=== PATIENT | male | born 1960 | race Caucasian/White ===

== ENCOUNTER 2016-12-17 14:54 | Emergency (ER) | payer OTHER ==
[~2016-12-17] VITALS: Ht 167.6 cm; Wt 68.2 kg
[2016-12-17 14:58] VITALS: BP 132/78; PULSE 72; RESP 20; O2SAT 98
--- NOTE | 2016-12-17 17:15 | ED.REPORT ---
HPI-Psychiatric Illness Date of Service Dec 17, 2016 ED Provider: Dr. Duenas 56 year old male who is well known to us who presents from [facility] for depression, SI and HI. See [employer] evaluation. SI and HI is not felt to be imminent. Does not elaborate any specific plan or target for his SI/HI ideations. He is angry but cooperative. Does not appear to be hallucinating. Willing to return to crisis as per plan. Requesting lorazepam at high doses, trazodone, Provigil. Seen at [place] recently and will be following up there for medications. Nursing Notes Stated Complaint: SUICIDAL Chief Complaint: Psychiatric Complaint Nursing Notes Reviewed: Yes Allergies: Coded Allergies: No Known Allergies (Verified Allergy, Unknown, 12/17/16) No Active Prescriptions or Reported Meds General Time Seen by MD: 17:15 Chief Complaint Suicidal ideation Hx Obtained From: Patient Arrived By: Walk-in Symptom Duration: Since onset Severity: Current: No pain currently Associated with: Reports: Illicit drug use, Denies: Fever Similar Sx Previous: Yes Risk-Psychiatric Illness Suicide Risk Stratification Suicide Risk Factors - Adult: : Alcohol use: Prior psych admission: Substance abuseNo: Access to firearms, Family Hx of Suicide RF Statements: Risk factors reviewed Past Medical History Past Medical History Notes: 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 Past Medical History Cervical disc disease Bipolar illness Emphysema COPD Rheumatoid arthritis TMJ Back pain Dental pain Depression Past Surgical History Faical abscess drainage Reports: Tonsillectomy Family History Reviewed, not relevant Smoking History Current Every Day Smoker Social History Alcohol Use: Denies alcohol use Drug Use: Meth, THC, Other Other Social History: Poor social support, Frequent ED visitor, Homeless Occupation at [employer] [facility] Ambulatory Status Independent Review of Systems Psychiatric: Reports: Depression, Homicidal ideation, Suicidal ideation Complete sys rev & neg: except as marked. Physical Exam Initial Vital Signs Vital Signs (First) Date Time Temp Pulse Resp B/P Pulse Ox O2 Delivery O2 Flow Rate FiO2 12/17/16 14:58 36.2 72 20 132/78 98 Room Air Initial VS: Reviewed Head / Eyes: Normocephalic, PERRL ENT: Conjunctiva normal, No scleral icterus Neck: Full range of motion Respiratory: Breath sounds normal, Clear to auscultation, No respiratory distress Cardiovascular: Regular rate & rhythm, Heart sounds normal, Intact distal pulses Extremities: Vascular intact, Neuro intact, No swelling, No tenderness Skin: Warm, Dry, No cyanosis General/Constitutional: Awake, Alert Neurologic: Oriented X3, Speech NL, No motor deficits Does not elaborate any specific plan or target for his SI/HI ideations. He is angry but cooperative. Does not appear to be hallucinating. Interpretation & Diagnostics 0 breathalyzer +Meth Lab Results Interpretation Test 12/17/16 15:40 Hold Urine Received (Received) General Lab Results Interp 1: Labs reviewed Re-Eval/Medical Decision Source of Hx: Old records Re-Evaluation/Progress : Time of Eval: 17:40 Re-Evaluation/Progress Note: Discussed plan for discharge and follow up. All questions addressed. Counseled Regarding: Diagnosis, Need for follow-up, When/why to return to ED Discharge & Departure Impression: Primary Impression: Depression Depression Type: major depressive disorder Major depression recurrence: recurrent Active/Remission status: currently active Major depression episode severity: moderate Qualified Code: F33.1 - Major depressive disorder, recurrent, moderate )( Condition at Discharge: No danger to self, No danger to others Disposition: Home Discharge Condition All VS Reviewed: Yes Condition: Stable Additional Instructions: Return to [facility], follow up with [facility]. Trazodone as prescribed. Scribe Attestation Portions of this note were transcribed by Farzaneh Maloney. I, (Dr. Duenas) personally performed the history, physical exam and medical decision- making; I reviewed and confirmed the accuracy of the information in the transcribed note. Signed by: Farzaneh Maloney. 12/17/2016, 1759 Haider Duenas MD Dec 17, 2016 17:15 Farzaneh Maloney Dec 17, 2016 17:27
[2016-12-17 18:08] VITALS: BP 133/86; PULSE 71; RESP 22; O2SAT 100
== END 2016-12-17 18:10 | disposition home or self-care (01) ==
LOC: SED 14:54
DX: F33.1 Major depressive disorder, recurrent, moderate (principal); R45.851 Suicidal ideations; R45.850 Homicidal ideations; J44.9 Chronic obstructive pulmonary disease, unspecified; M06.9 Rheumatoid arthritis, unspecified; F31.9 Bipolar disorder, unspecified; F17.200 Nicotine dependence, unspecified, uncomplicated

== ENCOUNTER 2017-06-09 17:11 | Emergency (ER) | payer OTHER ==
[~2017-06-09] VITALS: Ht 167.6 cm; Wt 65.9 kg
[2017-06-09 17:28] VITALS: BP 111/62; PULSE 69; RESP 20; O2SAT 97
[2017-06-09 18:07] LABS: BASOPHILS % (AUTO) 0.5 % (0-3); EOSINOPHILS % (AUTO) 5.1 % (0-5); MONOCYTES % (AUTO) 14.7 % (4-12); Mean Corpuscular Hemoglobin 30.4 pg (27.0-35.0); Mean Corpuscular Volume 94.1 fL (81-100); NEUTROPHILS % (AUTO) 48.2 % (40-74); Platelet Count 175 bil/L (150-400)
--- NOTE | 2017-06-09 18:07 | ED.REPORT ---
HPI-Abd Pain M 40 and Over Date of Service Jun 09, 2017 ED Provider: Morales Weber DO Pt is a 57 year old male with a hx of IV drug abuse and COPD presenting to the ED via EMS complaining of 9/10 bilateral flank pain right greater than left onset 5 days ago. Associated symptoms include dizziness, lightheadedness, decreased urination, right mid back and hip pain. He was walking down the road today and felt like he had to sit down, but then when he sat down he felt dizzy. Denies fever, chills, change in stool, abdominal pain, focal weakness, or any other symptoms at this time. He was admitted in 2000 for drug related renal failure. Pt reports that he is currently using meth and heroin. He states that these symptoms feel similar to when he had renal failure. Nursing Notes Stated Complaint: DIZZINESS, FLANK PAIN Chief Complaint: Male Abdominal Pain Nursing Notes Reviewed: Yes Allergies: Coded Allergies: No Known Allergies (Verified Allergy, Unknown, 12/17/16) No Active Prescriptions or Reported Meds General Time Seen by MD: 18:06 Chief Complaint Flank pain right Hx Obtained From: Patient Arrived By: Walk-in Sudden in Onset?: No Onset Occurred: 5 days ago Symptom Duration: Since onset Progression since Onset: Constant Location: : Flank left: Flank right Quality: Painful Radiation: : Back Severity: Current: Moderate Severity: Maximum: Severe Recent Healthcare: No recent doctor visit, No recent hospitalization Similar Sx Previous: Yes Past Medical History Past Medical History Notes: 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 Past Medical History Acute drug related renal failure in 2000 Cervical disc disease Bipolar illness Emphysema COPD Rheumatoid arthritis TMJ Back pain Dental pain Depression Past Surgical History Faical abscess drainage Reports: Tonsillectomy Family History Reviewed, not relevant Smoking History Current Every Day Smoker Social History Alcohol Use: Denies alcohol use Drug Use: Meth, THC, Other (Heroin) Other Social History: Poor social support, Frequent ED visitor, Homeless Occupation at [employer] Ambulatory Status Independent Review of Systems Constitutional: Denies: Chills, Fever GI: Denies: Abdominal pain, Bloody/tarry stool, Constipation, Diarrhea, Melena Male: Reports Flank pain, Reports Urination decreased Musculoskeletal: Reports: Back pain, Joint pain (Hip) Complete sys rev & neg: except as marked. Neurologic: Reports: Dizziness, Lightheaded, Denies: Focal weakness Physical Exam Initial Vital Signs Vital Signs (First) Date Time Temp Pulse Resp B/P Pulse Ox O2 Delivery O2 Flow Rate FiO2 06/09/17 17:28 36.8 69 20 111/62 97 Room Air Initial VS: Reviewed Head / Eyes: Atraumatic, Normocephalic, PERRL ENT: Mucous membranes moist, Conjunctiva normal, No scleral icterus Neck: Supple, Non-tender, Full range of motion Extremities: Vascular intact, Neuro intact, No swelling, No tenderness Skin: Warm, Dry, No cyanosis Neurologic: Alert, Oriented, Nonfocal Psychiatric: Mood/affect normal, Behavior normal, Normal thought content General/Constitutional: Awake, Alert, No acute distress, Well appearing Respiratory / Chest: Atraumatic, Breath sounds NL, Breath sounds = bilat, No respiratory distress Cardiovascular: Heart rate NL, Regular rhythm, Heart sounds NL, No gallop, No murmurs, No rubs Abdomen: Atraumatic, Soft, Non-tender, No guarding, No rebound Interpretation & Diagnostics Lab Results Interpretation Result Diagram: 06/09/17 1802 06/09/17 1802 Test 06/09/17 18:00 06/09/17 18:02 06/09/17 23:24 Urine Color Yellow (YELLOW) Urine Appearance Clear (CLEAR,HAZY) Urine pH 6.0 (5.0-8.0) Urine Specific [place] 1.025 (1.003-1.035) Urine Protein Negativemg/dL (NEG,TRACE) Urine Glucose (UA) Negativemg/dL (NEGATIVE) Urine Ketones Tracemg/dL (NEGATIVE) Urine Occult Blood Negative (NEGATIVE) Urine Nitrite Negative (NEGATIVE) Urine Bilirubin Negative (NEGATIVE) Urine Urobilinogen Normalmg/dL (NORMAL) Urine Leukocyte Esterase Negative (NEGATIVE) Urine RBC 0-2/hpf (0-2) Urine WBC 0-5/hpf (0-5) Urine Epithelial Cells Few/hpf (NONE-MOD) Urine Crystals Oxalic acid crystals (NONE Urine Bacteria Few/hpf (NONE-FEW) Urine Hyaline Casts None/lpf (NONE) Urine Granular Casts None seen (NONE SEEN) Urine Waxy Casts None seen (NONE SEEN) Urine Red Blood Cell Casts None seen (NONE SEEN) Urine White Blood Cell Casts None seen (NONE SEEN) Urine Mucus None seen (None Seen) Urine Trichomonas None seen (NONE SEEN) Urine Yeast None (NONE SEEN) Urinalysis Comment None Urine Culture Reflexed Not indicated White Blood Count 7.6th/mm3 (3.8-10.1) Red Blood Count 3.72mil/mm3 (4.40-5.80) Hemoglobin 11.3g/dL (13.8-17.2) Hematocrit 35.0% (41.0-50.0) Mean Corpuscular Volume 94.1fL (81-100) Mean Corpuscular Hemoglobin 30.4pg (27.0-35.0) Mean Corpuscular Hemoglobin Concent 32.3% (32.0-37.0) Red Cell Distribution Width 13.3% (12.3-15.4) Platelet Count 175bil/L (150-400) Neutrophils (%) (Auto) 48.2% (40-74) Lymphocytes (%) (Auto) 31.4% (14-46) Monocytes (%) (Auto) 14.7% (4-12) Eosinophils (%) (Auto) 5.1% (0-5) Basophils (%) (Auto) 0.5% (0-3) Sodium Level 141mEq/L (134-144) Potassium Level 3.9mEq/L (3.5-5.2) Chloride Level 103mEq/L (97-108) Carbon Dioxide Level 26mmol/L (18-29) Blood Urea Nitrogen 14mg/dL (6-24) Creatinine 0.74mg/dL (0.76-1.27) Estimat Glomerular Filtration Rate 116mL/min (>59) Glucose Level 73mg/dL (60-99) Calcium Level 8.6mg/dL (8.5-10.1) Magnesium Level 1.7mg/dL (1.6-2.6) Total Bilirubin 0.2mg/dL (0.0-1.2) Aspartate Amino Transf (AST/SGOT) 87U/L (0-50) Alanine Aminotransferase (ALT/SGPT) 106U/L (0-44) Alkaline Phosphatase 67U/L (25-150) Total Protein 6.2g/dL (6.4-8.4) Albumin 3.2g/dL (3.4-5.0) Lipase 51U/L (13-60) Troponin T 0.010ug/L (0.0-0.011) ECG Interpretation Time: 23:18 Interpreted by: ED physician Normal ECG Interpretation: Normal ECG w/ rate of... (66), Normal sinus rhythm CT Abd / Pelvis Interpretation CONCLUSION: 1. Normal caliber appendix. No free air, bowel obstruction, or gross intestinal inflammation. Small hypodense free fluid in the right posterior pelvis of uncertain etiology/clinical significance. 2. Negative for obstructive uropathy. 3. Small left lateral liver hemangioma. This report was transmitted to the emergency room at 06/09/2017 - 10:44:49 PM PDT. Study type: Abdominal CT IV contrast Interpretation / Wet Read by: Interpret - Radiologist Re-Eval/Medical Decision Med Decision/Clinical Course 57-year-old male with waxing and waning flank pain. On exam he had some CVA tenderness on the right. Laboratory work showed oxalate crystals in his urine. CT scan however was reassuring. There were some nonacute findings that he will follow up with. Pain was adequately treated. Short course of Percocet provided for pain. Routine opiate warnings given. He assures me he is not abusing any other drugs and he understands that if he combines the opiates we gave with street drugs that can be life-threatening. Recommend close outpatient follow-up. Time of Eval: 20:28 Patient Status: Condition improved Re-Evaluation/Progress Note: Performed physical exam. Time of Eval: 23:40 Patient Status: Condition improved Re-Evaluation/Progress Note: Discussed lab results and plan for discharge. Pt understands and agrees. Counseled Regarding: Diagnosis, Lab results, Need for follow-up, When/why to return to ED Discharge & Departure Primary Impression: Low back pain Chronicity: acute Back pain laterality: unspecified Sciatica presence: unspecified whether sciatica present Qualified Code: M54.5 - Low back pain Disposition: Home Vital Signs - All Vital Signs Date Time Temp Pulse Resp B/P Pulse Ox O2 Delivery O2 Flow Rate FiO2 06/10/17 00:53 36.8 75 18 114/67 96 Room Air 06/09/17 19:33 163/83 06/09/17 19:32 72 146/74 06/09/17 17:28 36.8 69 20 111/62 97 Room Air )( All Prior VS Reviewed: Yes Condition: Improved Patient Instructions: Flank Pain (ED) Additional Instructions: Your EKG and labs looked normal today. They did not show any sign of heart attack or blood clot. Your CT scan did not show any sign of kidney stones or and dangerous cause for your flank pain. Take the pain medication every 6 hours as needed for pain. This medication is a narcotic so do not drink alcohol, drive , or take Acetaminophen while taking it. Return to the ER if you develop any new or worsening symptoms. Follow up with your primary care doctor in the next week. Take one [place] every 6 hours as needed for severe pain. Do not combine this with any other opiates as the combination can be life-threatening. I suspect that may be a passed a kidney stone because you have crystals in your urine. Drink plenty of liquids. Your liver enzymes are elevated, this needs to be followed up with. Have them re-measured next week by your primary care physician. Referrals: [facility] Scribe Attestation Portions of this note were transcribed by Cecy Huber. I, Dr. Weber personally performed the history, physical exam and medical decision-making; I reviewed and confirmed the accuracy of the information in the transcribed note. Signed by : Ish Gastelum, 06/09/2017 at 2350. copies to: [facility] Morales Weber DO Jun 09, 2017 18:07 CECY HUBER Jun 09, 2017 18:31
[2017-06-09] MEDS ORDERED: 0.9% Sodium Chloride 1,000 ML IV SCH (18:30)
[2017-06-09 18:31] LABS: APPEARANCE,URINE CLEAR (CLEAR,HAZY); COLOR,URINE YELLOW (YELLOW); OCCULT BLOOD,URINE NEGATIVE (NEGATIVE); UROBILINOGEN,URINE NORMAL (NORMAL)
[2017-06-09 18:33] LABS: Magnesium 1.7 mg/dL (1.6-2.6)
[2017-06-09 19:32] VITALS: BP 146/74; PULSE 72
[2017-06-09 19:33] VITALS: BP 163/83
[2017-06-09] MEDS ORDERED: Iohexol 300 mg/mL 30 mL Inj PO ONE (20:15)
[2017-06-09] MEDS ORDERED: HYDROmorphone 0.5 mg/0.5 mL iSecure Syringe IVPUSH PRN (20:45)
[2017-06-09] MEDS ORDERED: _HYDROcodone/APAP 5-325 mg Tablet PO PRN (23:45)
[2017-06-10 00:53] VITALS: BP 114/67; PULSE 75; RESP 18; O2SAT 96
--- NOTE | 2017-06-10 07:42 | DRSVH ---
PROCEDURE: CT ABDOMEN AND PELVIS WITH CONTRAST ([id number]) INDICATIONS: flank pain and abdominal pain TECHNIQUE: After the administration of oral and intravenous contrast, 5 mm thick sections acquired from the diap hragms to the symphysis. 5 mm thick coronal and sagittal reformats were performed. For radiation do se reduction, the following was used: automated exposure control, adjustment of mA and/or kV accordi ng to patient size. COMPARISON: [facility], CT, CT FACE W CON, 10/01/2016, 20:43. FINDINGS: Image quality: Excellent. ABDOMEN: Lung bases: Lung bases are clear. Heart size is normal. Solid organs: Stable 1 cm nodule with peripheral nodular enhancement in the left lobe of the liver ( se 2 im 11). Gallbladder is contracted but otherwise radiographically normal. The pancreas, spleen, a drenal glands and kidneys are normal.. Peritoneum and bowel: Stomach is distended with no obstructing lesion identified. The colon is patulo us but otherwise are normal. Normal small bowel and appendix.. Nodes and vessels: No retroperitoneal or mesenteric adenopathy. Aorta and inferior vena cava are no rmal in caliber. Miscellaneous: No ventral hernias. PELVIS: Genitourinary: Bladder wall thickness is normal. Miscellaneous: No inguinal hernias or adenopathy. Bones: No suspicious bony lesions. No vertebral body compression fractures. IMPRESSION: 1. No CT evidence of acute abdominal or pelvic pathology. 2. Left lobe of the liver hemangioma. 3. The stomach is distended with no obstructing lesion identified. Consider correlation with endoscop y. 4. There are no discrepancies with the preliminary report. Dictated by: Philip Son M.D. on 06/10/2017 at 7:33 Approved by: Philip Son M.D. on 06/10/2017 at 7:40
== END 2017-06-10 00:55 | disposition home or self-care (01) ==
LOC: SED 17:11 → EDBD 17:11 → SED 06-10 00:55
DX: M54.5 Low back pain (principal); R42 Dizziness and giddiness; J44.9 Chronic obstructive pulmonary disease, unspecified; F32.9 Major depressive disorder, single episode, unspecified; F17.200 Nicotine dependence, unspecified, uncomplicated; Z59.0 Homelessness
CPT/HCPCS: 36415; 74177; 80053; 81000; 83690; 83735; 84484; 85025; 93005; 96361; 96374; 99285; J1170; J7030; Q9967